=== PATIENT | male | born 2000 | race Hispanic/Latino ===

== ENCOUNTER 2024-07-14 21:21 | Emergency (ER) | payer MEDICAID, SELFPAY ==
--- NOTE | ~2024-07-14 | CT_ITS ---
Non-contrast Head CT History: Headache Technique: Axial non-contrast imaging of the brain was performed. Dose reduction technique was used on this scan by utilizing automated exposure control and iterative reconstruction technique. The dose -length product (DLP) was 605.33 mGy-cm. Findings: There is no evidence of intracranial hemorrhage, mass lesion, or acute infarct. Brain par enchyma appears normal. The ventricles and subarachnoid spaces are normal in size. The calvarium ap pears normal. The visualized paranasal sinuses and mastoid air cells are clear. Impression: No significant abnormality seen. Reviewed, dictated and finalized at location . Impression: No significant abnormality seen.
--- NOTE | ~2024-07-14 | XR_ITS ---
Portable chest x-ray Comparison: None Clinical History: Fever Findings: Lungs are clear, without focal consolidation or pleural effusion. Cardiomediastinal silho uette is unremarkable, aside from median sternotomy. Bones and soft tissues are unremarkable. Impression: Clear lungs. Evidence of prior cardiac surgery. Reviewed, dictated and finalized at location . Impression: Clear lungs. Evidence of prior cardiac surgery.
--- OUTSIDE RECORDS SUMMARY | 2024-07-14 21:23 | XMS_ITS | Clinical Summary ---
Author Organization [facility] [employer] Address [address] [place] [address] Care Team Providers Care Oil And Gas Recruiter Name Role Phone Ivanna Hyde dispatch coordinator Provider Unav ailable Source Comments [facility] [employer],non-owned Affiliates and Associated Physician Practices is amultiple site organization consisting of ambulatory clinics and hospital sitesin [place], [place], [place] and [place]. This disclosure is being madepursuant to the Care Everywhere program and may not contain all information available regarding this patient. Last updated 17.[facility] [employer] Allergies No known active allergies Medications * Be aware that medications may not be up to date on this document. Alwaysverify current medications with the patient. 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 Gender Identity Not on file Sexual Orientation Not on file Last Filed Vital Signs Vital Sign Reading Time Taken Comments Blood Pressure 119/64 09/07/2020 7:15 PM CDT Pulse 97 09/07/2020 7:28 PM CDT Temperature 36.9 C (98.5 F) 09/07/2020 7:00 PM CDT Respiratory Rate 19 09/07/2020 7:28 PM CDT Oxygen Saturation 95% 09/07/2020 7:28 PM CDT Inhaled Oxygen Concentration - - Weight 72.6 kg (160 lb) 09/07/2020 7:00 PM CDT Height 180.3 cm (5' 11) 09/07/2020 7:00 PM CDT Body Mass Index 22.32 09/07/2020 7:00 PM CDT Plan of Treatment Health Maintenance Due Date Last Done Comments HIV SCREENING 2016 HPV VACCINE (1 - Male 3-dose series) 2016 MENINGOCOCCAL (Group B) VACC INE SHARED DECISION-MAKING (1 of 2 - Standard) 2017 HEPATITIS C SCREENING 08/04/2019 DTAP/TDAP/TD VACCINES (1 - Tdap) 2020 HEPATITIS B VACCINE (1 of 3 - 19+ 3-dose series) 2020 COVID-19 VACCINE (1 - 2023-2 5 season) 2023 DEPRESSION SCREENING 02/14/2024 INFLUENZA VACCINE (Season Ended) 2024 ZOSTER VACCINE (1 of 2) 08/09/2051 HIB VACCINE Aged Out No longer eligi ble based on patient's age to complete this topic MENINGOCOCCAL GROUPS A/C/Y/W VACCINE Aged Out No longer eligible b ased on patient's age to complete this topic PNEUMOCOCCAL VACCINE Aged Out No long er eligible based on patient's age to complete this topic Insurance [facility] Care Teams Oil And Gas Recruiter Relationship Specialty Start Date End Date Ivanna Hyde RN PCP - General 02/21/17
--- OUTSIDE RECORDS SUMMARY | 2024-07-14 21:23 | XMS_ITS | CONTINUITY OF CARE DOCUMENT ---
Author Name ehsan moser Address Unknown Organization [facility] Address [address] [place] [address] Phone [phone] Care Team Providers Care Fixed Wing Aircraft Flight Mechanic Name Role Phone Manuel Watts MD Unavailable [phone] Manuel Watts MD Unavailable [phone] INSURANCE PROVIDERS Payer name Policy type / Coverage type [place] red alliance party ID [facility] [id number] HEALTHCARE AND FAMILY SERVICES Medicaid 1 [id number]
[2024-07-14 21:51] VITALS: BP 104/68; PULSE 116; RESP 20; TEMP 37.4; O2SAT 100
[2024-07-15 00:12] VITALS: BP 110/64; PULSE 96; RESP 18; TEMP 37.8; O2SAT 97
--- OUTSIDE RECORDS SUMMARY | 2024-07-15 00:30 | XMS_ITS | CONTINUITY OF CARE DOCUMENT ---
Author Name ehsan moser Address Unknown Organization [facility] Address [address] [place] [address] Phone [phone] Care Team Providers Care Parimutuel Cashier Name Role Phone Manuel Watts MD Unavailable [phone] Manuel Watts MD Unavailable [phone] INSURANCE PROVIDERS Payer name Policy type / Coverage type [place] red constitution party ID [facility]-ADVANTAGE [facility] [id number] HEALTHCARE AND FAMILY SERVICES Medicaid 1 [id number]
--- OUTSIDE RECORDS SUMMARY | 2024-07-15 00:30 | XMS_ITS | Clinical Summary ---
Author Organization [facility] [employer] Address [address] [place] [address] Care Team Providers Care Frame Sample And Pattern Supervisor Name Role Phone Ivanna Hyde auto body shop manager Provider Unav ailable Source Comments [facility] [employer],non-owned Affiliates and Associated Physician Practices is amultiple site organization consisting of ambulatory clinics and hospital sitesin [place], [place], [place] and [place]. This disclosure is being madepursuant to the Care Everywhere program and may not contain all information available regarding this patient. Last updated 17.[facility] [employer] Allergies No known active allergies Medications * Be aware that medications may not be up to date on this document. Alwaysverify current medications with the patient. 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
[2024-07-15] MEDS: diphenhydrAMINE HCl INJ 50 MG/ML VIAL IV PUSH (01:01)
[2024-07-15] MEDS: PROCHLORPERAZINE EDISYLATE 10 MG/2 ML VIAL IV PUSH (01:01)
[2024-07-15] MEDS: SODIUM CHLORIDE 0.9% IV 1,000 ML 999 ML IV CONT (01:01)
[2024-07-15] MEDS: KETOROLAC 15 MG/ML VIAL (*BKC) IV PUSH (01:01)
--- NOTE | 2024-07-15 01:03 | ED.GENADULT ---
HPI - General Adult General Chief complaint: Headache Stated complaint: Migraine x 1 week Time Seen by Provider: 07/15/24 00:15 History of Present Illness HPI narrative: Patient with year old gentleman presents emergency department with chief complaint of headache nausea vomiting. Patient does report that he had a low-grade fever today reports he has prior history of endocarditis and had surgery at [facility] previously this year due to endocarditis. The patient states that he has no chest pain denies shortness of breath reports he has had no cough does report that he has had some nausea vomiting reports that he has photophobia patient denies nuchal rigidity reports that he is able to move his neck without difficulty. Related Data Allergies Allergy/AdvReac Type Severity Reaction Status Date / Time Sulfa (Sulfonamide Allergy Intermediate Swelling Verified 07/15/24 00:13 Antibiotics) Review of Systems Review of Systems: A 10 system review of systems was completed on the patient and is negative except for what is stated in the HPI. Nursing and ancillary documentation was reviewed. Exam Narrative: GENERAL: Well-appearing, well-nourished, and in no acute distress. HEAD: Normocephalic, atraumatic. EYES: PERRLA and EOMI. ENT: Nares clear, no rhinorrhea or epistaxis. Mucous membranes moist. NECK: Supple. No nuchal rigidity CHEST: Clear to auscultation. No respiratory distress. HEART: Regular rate and rhythm. No murmur heard. Normal peripheral pulses. ABDOMEN: Soft, nontender, nondistended, normal active bowel sounds. EXTREMITIES: Normal range of motion. No edema. SKIN: Warm, dry, no rash. NEURO: No focal deficits. Alert and oriented x3. PSYCH: Normal mood and affect. Course Vital Signs Vital signs: Vital Signs Temperature 37.4 C 07/14/24 21:51 Pulse Rate 116 H 07/14/24 21:51 Respiratory Rate 20 07/14/24 21:51 Blood Pressure 104/68 07/14/24 21:51 Pulse Oximetry 100 07/14/24 21:51 Oxygen Delivery Autopap 07/14/24 21:51 Temperature 37.0 C 07/15/24 01:45 Pulse Rate 90 07/15/24 01:45 Respiratory Rate 17 07/15/24 01:45 Blood Pressure 120/68 07/15/24 01:45 Pulse Oximetry 97 07/15/24 01:45 Oxygen Delivery Autopap 07/14/24 21:51 Medical Decision Making [facility] Narrative Medical decision making narrative: Differential diagnosis includes pneumonia, upper respiratory infection, migraine headache, meningitis, endocarditis [place] [id number] The patient has no nuchal rigidity or meningismus The patient had a procalcitonin of 0.3 COVID flu and RSV were negative strep was also negative CT head showed no acute abnormality Chest x-ray showed no focal infiltrate After receiving IV fluids and a migraine-type cocktail the patient is feeling much better at this time has defervesced and still shows no signs of meningeal irritation The patient will be discharged home Vital Signs Vital Signs: Vital Signs Temperature 37.4 C 07/14/24 21:51 Pulse Rate 116 H 07/14/24 21:51 Respiratory Rate 20 07/14/24 21:51 Blood Pressure 104/68 07/14/24 21:51 Pulse Oximetry 100 07/14/24 21:51 Oxygen Delivery Autopap 07/14/24 21:51 Temperature 37.0 C 07/15/24 01:45 Pulse Rate 90 07/15/24 01:45 Respiratory Rate 17 07/15/24 01:45 Blood Pressure 120/68 07/15/24 01:45 Pulse Oximetry 97 07/15/24 01:45 Oxygen Delivery Autopap 07/14/24 21:51 Lab Data 07/15/24 00:56 07/15/24 00:56 Labs: Lab Results 07/15/24 07/15/24 Range/Units 00:55 00:56 WBC 17.1 H (4.5-10.0) K/mm3 RBC 4.44 L (4.6-6.20) M/mm3 Hgb 12.3 L (14.0-18.0) g/dL Hct 37.5 L (42.0-52.0) % MCV 84.5 (80-100) fl MCH 27.7 (26-34) pg MCHC 32.8 (32-36) g/dl RDW 13.9 (11.5-14.5) % Plt Count 196 (150-375) k/mm3 MPV 10.9 H (7.4-10.4) fl Immature Gran % (Auto) 0.5 (0-0.5) % Neut % (Auto) 78.2 H (45.5-73.1) % Lymph % (Auto) 12.5 L (18.3-44.2) % [place] % (Auto) 8.5 (2.6-8.5) % Eos % (Auto) 0.1 (0-4.4) % Baso % (Auto) 0.2 (0.2-1.2) % Lymph # (Auto) 2.14 (0.9-3.2) K/mm3 [place] # (Auto) 1.5 H (0.1-0.6) K/mm3 Eos # (Auto) 0.0 (0-0.3) K/mm3 Baso # (Auto) 0.0 (0.0-0.1) K/mm3 Abs Immat Gran (auto) 0.08 H (0.00-0.031) K/mm3 Absolute Neuts (auto) 13.4 H (1.3-6.7) K/mm3 Absolute Nucleated RBC 0.000 (0.0-0.012) K/mm3 Nucleated RBC % 0.0 (0.0-0.2) % ESR Pending PT 16.0 H (11.1-14.7) Seconds INR 1.3 APTT 33.4 (22.3-36.8) Seconds Sodium 134 L (137-145) mmol/L Potassium 3.3 L (3.4-5.0) mmol/L Chloride 100 (98-107) mmol/L Carbon Dioxide 24 (22-30) mmol/L Anion Gap 10 (4-12) mmol/L BUN 9 (9-20) mg/dL Creatinine 0.78 (0.7-1.3) mg/dL Estim Creat Clear Calc 141 ml/min Estimated GFR > 60 (59 - ) Glucose 128 H (65-110) mg/dL Lactic Acid 2.0 (0.7-2.0) mmol/L Calcium 8.9 (8.4-10.2) mg/dL Magnesium 2.0 (1.6-2.3) mg/dL Total Bilirubin 0.9 (0.2-1.3) mg/dL AST 21 (17-59) U/L ALT 24 (6-50) U/L Alkaline Phosphatase 80 (38-126) U/L C-Reactive Protein Pending Total Protein 7.0 (6.3-8.2) g/dL Albumin 3.9 (3.5-5.1) g/dL Procalcitonin 0.3 ng/mL Influenza A (RT-PCR) Negative (Negative) Influenza B (RT-PCR) Negative (Negative) RSV (RT-PCR) Negative (Negative) SARS-CoV-2 RNA (RT-PCR) Negative (Negative) Group A Strep (PCR) Not detected (Negative) Discharge Plan Discharge Clinical Impression: Headache, Acute viral syndrome Patient Disposition: Home Condition: Stable Instructions: Antibiotic Form, Acute Headache (ED), Viral Syndrome (ED) Additional Instructions: If he develops severe headache culture was stiffness in your neck were you cannot bend your neck high fevers or worsening symptoms please return to the emergency department for re-evaluation Patient Language: Trinidadian Follow-up/Referrals: Allen,MD Daryl [Primary Care Provider] - Time of Disposition: 02:04
[2024-07-15] MEDS: ACETAMINOPHEN 500 MG TABLET 1000 MG PO (01:06)
[2024-07-15 01:20] LABS: Alanine Aminotransferase 24 U/L (6-50); Albumin Level 3.9 g/dL (3.5-5.1); Alkaline Phosphatase 80 U/L (38-126); Anion Gap 10 mmol/L (4-12); Aspartate Amino Transferase 21 U/L (17-59); Bilirubin,Total 0.9 mg/dL (0.2-1.3); Blood Urea Nitrogen 9 mg/dL (9-20); Calcium 8.9 mg/dL (8.4-10.2); Carbon Dioxide 24 mmol/L (22-30); Chloride 100 mmol/L (98-107); Estimated CRCL calculation 141 ml/min; Estimated Glomerular Filt Rate > 60; Glucose 128 mg/dL (65-110); Potassium 3.3 mmol/L (3.4-5.0); Sodium 134 mmol/L (137-145)
[2024-07-15 01:30] LABS: Basophils Percent Auto 0.2 % (0.2-1.2); Eosinophils Percent Auto 0.1 % (0-4.4); Hematocrit 37.5 % (42.0-52.0); Hemoglobin 12.3 g/dL (14.0-18.0); Immature Granulocyte Absolute 0.08 K/mm3 (0.00-0.031); Immature Granulocyte Percent A 0.5 % (0-0.5); Lymphocytes Absolute Auto 2.14 K/mm3 (0.9-3.2); Lymphocytes Percent Auto 12.5 % (18.3-44.2); Mean Corpuscular HGB Conc 32.8 g/dl (32-36); Mean Corpuscular Hemoglobin 27.7 pg (26-34); Mean Corpuscular Volume 84.5 fl (80-100); Mean Platelet Volume 10.9 fl (7.4-10.4); Monocytes Absolute Auto 1.5 K/mm3 (0.1-0.6); Monocytes Percent Auto 8.5 % (2.6-8.5); Neutrophils Absolute Auto 13.4 K/mm3 (1.3-6.7); Neutrophils Percent Auto 78.2 % (45.5-73.1); Platelet Count Result 196 k/mm3 (150-375); Red Blood Count 4.44 M/mm3 (4.6-6.20); Red Cell Distribution Width 13.9 % (11.5-14.5); White Blood Count 17.1 K/mm3 (4.5-10.0)
[2024-07-15 01:33] LABS: Strep Group A RT-PCR NOT DETECTED (Negative)
[2024-07-15 01:35] VITALS: TEMP 37
[2024-07-15 01:42] LABS: INR 1.3; Partial Thromboplastin Time 33.4 Seconds (22.3-36.8)
[2024-07-15 01:45] VITALS: BP 120/68; PULSE 90; RESP 17; TEMP 37; O2SAT 97
[2024-07-15 01:45] LABS: Influenza A QL RT-PCR Negative (Negative); Influenza B QL RT-PCR Negative (Negative); RSV RNA, RT-PCR Negative (Negative); SARS-CoV-2 RNA PCR Negative (Negative)
[2024-07-15 01:49] LABS: Procalcitonin 0.3 ng/mL
[2024-07-15 02:07] LABS: CRP 6.8 mg/dL (<1.0)
[2024-07-15 02:34] LABS: Erythrocyte Sedimentation Rate 19 mm/hr (0-20)
--- NOTE | 2024-07-16 00:46 | PC.NURSE ---
Received call from lab regarding critical blood culture result, and that lab was unable to get ahold of the hospitalist x3 attempts. Resulted as Gm + cocci in chains on blood culture that was drawn when the patient was in the ED 07/15/24 early am and evaluated for a headache. Note the patient has a hx of mitral valve replacement. Call to ED, result given to Nicol Amato, recharger, who passed the result on to ERP Dr. Hinton. Dr. Hinton states will contact the patient with the results and further instructions.
== END 2024-07-15 02:15 | disposition home or self-care (01) ==
PROVIDERS: Emergency Provider Emergency Medicine; PCP Pediatrics
DX: R51.9 Headache, unspecified (principal); B34.9 Viral infection, unspecified; Z20.822 Contact with and (suspected) exposure to COVID-19
CPT/HCPCS: 36415; 70450; 71045; 80053; 83605; 83735; 84145; 85025; 85610; 85652; 85730; 86140; 87040; 87181; 87637; 87651; 96361; 96374; 96375; 99284; A9270; J0780; J1200; J1885; J7030

== ENCOUNTER 2024-07-16 17:18 | Emergency (ER) | payer MEDICAID, SELFPAY ==
--- NOTE | ~2024-07-16 | XR_ITS ---
XR chest 1V portable Ordering provider: Christin Quinones PA-C History: 23 years Male with . sepsis w/u . Comparison: July 15, 2024 FINDINGS: MEDIASTINUM: The cardiac silhouette is not enlarged. Postoperative changes in the mediastinum. LUNGS: No infiltrates, effusions or pneumothorax. OTHER: No free air under the diaphragm. IMPRESSION: No acute cardiopulmonary pathology. Reviewed, dictated and finalized at location A.
--- OUTSIDE RECORDS SUMMARY | 2024-07-16 17:20 | XMS_ITS | CONTINUITY OF CARE DOCUMENT ---
Author Name ehsan moser Address Unknown Organization [facility] Address [address] [place] [address] Phone [phone] Care Team Providers Care Nursery Rn Name Role Phone Manuel Watts MD Unavailable [phone] Manuel Watts MD Unavailable [phone] INSURANCE PROVIDERS Payer name Policy type / Coverage type [place] red green party ID [facility]-ADVANTAGE [facility] [id number] HEALTHCARE AND FAMILY SERVICES Medicaid 1 [id number]
--- OUTSIDE RECORDS SUMMARY | 2024-07-16 17:20 | XMS_ITS | Clinical Summary ---
Author Organization [facility] [employer] Address [address] [place] [address] Care Team Providers Care City Carrier Name Role Phone Ivanna Hyde safety assistant Provider Unav ailable Source Comments [facility] [employer],non-owned Affiliates and Associated Physician Practices is amultiple site organization consisting of ambulatory clinics and hospital sitesin [place], [place], [place] and [place]. This disclosure is being madepursuant to the Care Everywhere program and may not contain all information available regarding this patient. Last updated 17.[facility] [employer] Allergies No known active allergies Medications * Be aware that medications may not be up to date on this document. Alwaysverify current medications with the patient. 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
[2024-07-16 17:36] VITALS: BP 132/79; PULSE 108; RESP 16; TEMP 36.3; O2SAT 100
--- NOTE | 2024-07-16 18:13 | ECG_ITS ---
Test Date: 2024-07-16 18:44:39 Measurements Intervals [place] Rate: 80 P: 55 WV: 115 QRS: 42 QRSD: 95 T: 48 QT: 371 QTc: 429 Interpretive Statements SINUS RHYTHM WITH SHORT [place] INTERVAL NONSPECIFIC T-WAVE ABNORMALITY- ANTERIOR LEADS BASELINE ARTIFACT- I, II, AVR, AVL, V1 BORDERLINE ECG No previous ECG available for comparison Electronically Signed On 07-16-2024 18:49:42 CDT by Ed Burgos D.O.
[2024-07-16 18:47] LABS: Basophils Absolute Auto 0.1 K/mm3 (0.0-0.1); Basophils Percent Auto 0.3 % (0.2-1.2); Hematocrit 35.3 % (42.0-52.0); Hemoglobin 11.6 g/dL (14.0-18.0); Immature Granulocyte Absolute 0.22 K/mm3 (0.00-0.031); Immature Granulocyte Percent A 1.1 % (0-0.5); Lymphocytes Absolute Auto 1.49 K/mm3 (0.9-3.2); Lymphocytes Percent Auto 7.5 % (18.3-44.2); Mean Corpuscular HGB Conc 32.9 g/dl (32-36); Mean Corpuscular Hemoglobin 28.1 pg (26-34); Mean Corpuscular Volume 85.5 fl (80-100); Monocytes Absolute Auto 1.3 K/mm3 (0.1-0.6); Monocytes Percent Auto 6.8 % (2.6-8.5); Neutrophils Absolute Auto 16.8 K/mm3 (1.3-6.7); Neutrophils Percent Auto 84.3 % (45.5-73.1); Platelet Count Result 215 k/mm3 (150-375); Red Blood Count 4.13 M/mm3 (4.6-6.20); White Blood Count 19.9 K/mm3 (4.5-10.0)
--- OUTSIDE RECORDS SUMMARY | 2024-07-16 18:47 | XMS_ITS | CONTINUITY OF CARE DOCUMENT ---
Author Name ehsan moser Address Unknown Organization [facility] Address [address] [place] [address] Phone [phone] Care Team Providers Care Ferryboat Deckhand Name Role Phone Manuel Watts MD Unavailable [phone] Manuel Watts MD Unavailable [phone] INSURANCE PROVIDERS Payer name Policy type / Coverage type [place] red constitution party ID [facility]-ADVANTAGE [facility] [id number] HEALTHCARE AND FAMILY SERVICES Medicaid 1 [id number]
--- OUTSIDE RECORDS SUMMARY | 2024-07-16 18:47 | XMS_ITS | Clinical Summary ---
Author Organization [facility] Address [address] [place] [address] Care Team Providers Care Binding Bench Worker Name Role Phone Ivanna Hyde tobacco prizer Provider Unav ailable Source Comments [facility],non-owned Affiliates and Associated Physician Practices is amultiple site organization consisting of ambulatory clinics and hospital sitesin [place], [place], [place] and [place]. This disclosure is being madepursuant to the Care Everywhere program and may not contain all information available regarding this patient. Last updated 17.[facility] Allergies No known active allergies Medications * Be aware that medications may not be up to date on this document. Alwaysverify current medications with the patient. 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
--- NOTE | 2024-07-16 18:49 | ED_ITS ---
HPI - Recheck/Abnormal Lab/Rx General Chief Complaint: Recheck/Abnormal Lab/Rx <ERINN Gomez Last Filed: 07/17/24 03:32> Stated Complaint: + blood cultures <ERINN Gomez Last Filed: 07/17/24 03:32> Time Seen by Provider: 07/16/24 18:14 <ERINN Gomez Last Filed: 07/17/24 03:32> Source: patient and old records reviewed <ERINN Gomez Last Filed: 07/17/24 03:32> Mode of arrival: ambulatory <ERINN Gomez Filed: 07/17/24 03:32> Limitations: no limitations <ERINN Gomez Last Filed: 07/17/24 03:32> History of Present Illness HPI narrative: Patient is a 23-year-old male who presents the ED with report of positive blood cultures. 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 He underwent subsequent mitral valve replacement at [facility]. He is unsure of his surgeon's name. He was seen in the ED here late Monday night into Monday morning for a headache and nausea/vomiting. He reported low very fevers at time. He did not exhibit any evidence of meningitis and improved with a migraine cocktail. Had blood work drawn at that time showing leukocytosis of 17,000. Blood cultures were obtained prior to patient being ultimately discharged home. Received notification from labs yesterday that all 3 of patient's blood cultures resulted positive for gram positive cocci in chains. Patient was referred back to the ED for further evaluation. Patient does admit to ongoing intermittent fevers. He denies current headache. Denies focal numbness or weakness, nausea, vomiting, cough, congestion, chest pain, shortness of breath. Patient denies further IV drug use. He does admit to injecting just after leaving the hospital in February, but states he has not used since then. Patient was supposed to follow-up with his surgeon in April, but missed his appointment. <ERINN Gomez Last Filed: 07/17/24 03:32> Related Data Allergies/Adverse Reactions: Allergies Allergy/AdvReac Type Severity Reaction Status Date / Time Sulfa (Sulfonamide Allergy Intermediate Swelling Verified 07/15/24 00:13 Antibiotics) <Christin Quinones PA-C - Last Filed: 07/17/24 03:32> Review of Systems 2 Review of Systems: All systems reviewed & are unremarkable except as noted in HPI. <Christin Quinones PA-C - Last Filed: 07/17/24 03:32> All systems reviewed & are unremarkable except as noted in HPI and below < Christin Quinones PA-C - Last Filed: 07/17/24 03:32> Exam 2 Narrative: GENERAL: Mildly ill appearing, well-nourished, non-toxic, in no acute distress. HEAD: Normocephalic, atraumatic. NECK: No meningeal signs. RESPIRATORY: Airway patent, respirations nonlabored. Clear to auscultation bilaterally, no rales, rhonchi, wheezing. CARDIOVASCULAR: Borderline tachycardic with regular rhythm. No appreciable murmurs. Normal peripheral pulses. ABDOMINAL: Soft, nontender, nondistended. Normoactive BS. MUSCULOSKELETAL: Moves all extremities. No gross deformities. No peripheral edema. SKIN: Warm, dry, normal color. NEURO: A&O X3. Speech clear. Cranial nerves II-XII grossly intact. Steady gait. No ataxic movements. PSYCHIATRIC: Appropriate mood and affect. Normal interaction. <Christin Quinones PA-C - Last Filed: 07/17/24 03:32> Course RESERVATION MANAGER/PA Physician Supervision PA did inform me this patient had presented to the ED. Multiple phone calls had been made in the preceding 24 hours regarding positive blood cultures. I was notified patient had a bed at [facility] but was wanting to be transported by his mother. Patient does not appear to have any logistical plans aligned/arranged. I do know the PA spent an extensive time discussing risks and benefit with patient who became frustrated and , given he had the capacity to do so, left against medical advice. <Farhana Hinton MD - Last Filed: 07/22/24 05:11> Vital Signs Vital signs: Vital Signs Temperature 97.3 F L 07/16/24 17:36 Pulse Rate 108 H 07/16/24 17:36 Respiratory Rate 16 07/16/24 17:36 Blood Pressure 132/79 07/16/24 17:36 Pulse Oximetry 100 07/16/24 17:36 Oxygen Delivery Room Air 07/16/24 17:36 Temperature 97.3 F L 07/16/24 17:36 Pulse Rate 80 07/16/24 19:45 Respiratory Rate 16 07/16/24 19:45 Blood Pressure 120/77 07/16/24 19:45 Pulse Oximetry 98 07/16/24 19:45 Oxygen Delivery Room Air 07/16/24 17:36 <Christin Quinones PA-C - Last Filed: 07/17/24 03:32> Vital Signs Temperature 97.3 F L 07/16/24 17:36 Pulse Rate 108 H 07/16/24 17:36 Respiratory Rate 16 07/16/24 17:36 Blood Pressure 132/79 07/16/24 17:36 Pulse Oximetry 100 07/16/24 17:36 Oxygen Delivery Room Air 07/16/24 17:36 Temperature 97.3 F L 07/16/24 17:36 Pulse Rate 80 07/16/24 19:45 Respiratory Rate 16 07/16/24 19:45 Blood Pressure 120/77 07/16/24 19:45 Pulse Oximetry 98 07/16/24 19:45 Oxygen Delivery Room Air 07/16/24 17:36 <Farhana Hinton MD - Last Filed: 07/22/24 05:11> MDM - Recheck/Abnormal Lab/Rx MDM Narrative Medical decision making narrative: Patient presented to ED with report of office blood cultures. Was seen in the ED here on 07/15 for migraine, nausea, vomiting. Improved with migraine cocktail however white count was noted to be elevated blood cultures were obtained. These blood cultures did result positive for gram-positive cocci in chains. Blood cultures repeated today. White blood cell count increasing from 17k to 19.9 today. 84% neutrophils. No bandemia. CMP is fairly unremarkable, stable electrolytes. Stable kidney function. Blood glucose 124. AST 51. ALT 94. Alk-phos 199. Lactic acid 2.0. Procalcitonin 0.3. CRP 8.5. Troponin undetectable. EKG without concerning ST changes. Chest x-ray is clear. UA with trace ketones, no signs of infection. Urine drug screen is positive for amphetamines and cannabinoids. Discussed case with Dr. Vandana Canas, hospitalist at [facility], accepted patient for transfer/admission. Will consult Dr. West, cardiothoracic surgery, who performed previous surgery. Patient received bed at [facility]. Will arrange transportation. He remains stable at this time. Upon discussing transfer via ambulance with patient, patient reports he does not feel comfortable going over to [facility] in an ambulance. Requesting to go by private vehicle. States he will have his mother come pick him up and take him to [facility]. I discussed with patient that this is not a monzon decision, that he truly needs ongoing antibiotics and telemetry monitoring, and to be a direct admission at an outside hospital, it is common protocol and recommended that he goes by ambulance. The patient is adamant that he will not go by ambulance. Requesting to sign out against medical advice. Reports that he would like to smoke before going to [facility] and he is not in a good mental space to go through all this again. I offered nicotine patch and anti anxiety medication to keep patient calm for transport, however he declined. Again, very adamant that he will not go by ambulance. I advised that it is not recommended to transport via POV and I am not comfortable simply allowing his mother to take him via POV given that previous EDP attempted to contact her numerous times yesterday and were unsuccessful. I requested to speak to patient's mother to discuss this situation and the critical nature of patient's condition with her. The patient himself attempted to contact her numerous times, but was unable to reach her. Do not feel she is a reliable source to be working in patient's best interest at this time. Again advised patient would need to sign out against medical advise if he chose to leave, which I strongly advised against, and informed patient AMA status would thus forfeit his assigned bed at [facility]. I had an extensive conversation with patient at bedside, at least greater than 20 minutes, about the risks of leaving against medical advice and the seriousness of his current condition/bacteremia/possible recurrent endocarditis/need for immediate care and treatment. I emphasized the extreme risks of the possibility of if patient chooses to leave [place] and forego further treatment. Patient voiced understanding of risks and is adamant about leaving AMA. Refusing to talk on the subject any further. Patient signed AMA paperwork, left facility with steady gait. Advised he can return at any time to resume evaluation. < Christin Quinones PA-C - Last Filed: 07/17/24 03:32> Medical Records Attestation: I reviewed the patient's medical records. <Christin Quinones PA-C - Last Filed: 07/17/24 03:32> Lab Data Attestation: I reviewed the patient's lab results. <Christin Quinones PA-C - Last Filed: 07/17/24 03:32> Result diagrams: 07/16/24 18:36 07/16/24 19:25 <Christin Quinones PA-C - Last Filed: 07/17/24 03:32> Labs: Lab Results 07/16/24 07/16/24 07/16/24 Range/Units 18:36 19:25 19:43 WBC 19.9 H (4.5-10.0) K/mm3 RBC 4.13 L (4.6-6.20) M/mm3 Hgb 11.6 L (14.0-18.0) g/dL Hct 35.3 L (42.0-52.0) % MCV 85.5 (80-100) fl MCH 28.1 (26-34) pg MCHC 32.9 (32-36) g/dl RDW 14.0 (11.5-14.5) % Plt Count 215 (150-375) k/mm3 MPV 11.0 H (7.4-10.4) fl Immature Gran % (Auto) 1.1 H (0-0.5) % Neut % (Auto) 84.3 H (45.5-73.1) % Lymph % (Auto) 7.5 L (18.3-44.2) % [place] % (Auto) 6.8 (2.6-8.5) % Eos % (Auto) 0.0 (0-4.4) % Baso % (Auto) 0.3 (0.2-1.2) % Lymph # (Auto) 1.49 (0.9-3.2) K/mm3 [place] # (Auto) 1.3 H (0.1-0.6) K/mm3 Eos # (Auto) 0.0 (0-0.3) K/mm3 Baso # (Auto) 0.1 (0.0-0.1) K/mm3 Abs Immat Gran (auto) 0.22 H (0.00-0.031) K/mm3 Absolute Neuts (auto) 16.8 H (1.3-6.7) K/mm3 Absolute Nucleated RBC 0.000 (0.0-0.012) K/mm3 Nucleated RBC % 0.0 (0.0-0.2) % PT 17.2 H (11.1-14.7) Seconds INR 1.4 APTT 31.5 (22.3-36.8) Seconds Sodium 139 (137-145) mmol/L Potassium 4.3 (3.4-5.0) mmol/L Chloride 105 (98-107) mmol/L Carbon Dioxide 24 (22-30) mmol/L Anion Gap 10 (4-12) mmol/L BUN 18 (9-20) mg/dL Creatinine 0.83 (0.7-1.3) mg/dL Estim Creat Clear Calc Not Reportable Estimated GFR > 60 (59 - ) Glucose 124 H (65-110) mg/dL Lactic Acid 2.0 (0.7-2.0) mmol/L Calcium 9.2 (8.4-10.2) mg/dL Total Bilirubin 0.7 (0.2-1.3) mg/dL AST 51 (17-59) U/L ALT 94 H (6-50) U/L Alkaline Phosphatase 199 H (38-126) U/L Troponin I < 0.012 (0.000-0.034) ng/mL C-Reactive Protein 8.5 H (<1.0) mg/dL Total Protein 7.7 (6.3-8.2) g/dL Albumin 4.1 (3.5-5.1) g/dL Procalcitonin 0.3 ng/mL Urine Color Yellow (Yellow) Urine Appearance Clear (Clear) Urine pH 6.0 (5.0-9.0) Ur Specific [place] 1.028 (1.001-1.035) Urine Protein 1+ H (Negative) mg/dL Urine Glucose (UA) Negative (Negative) mg/dL Urine Ketones Trace H (Negative) mg/dL Ur Blood (Man) Negative (Negative) Urine Nitrate Negative (Negative) Urine Bilirubin Negative (Negative) Urine Urobilinogen 1.0 (<2.0) mg/dL Leukocyte Esterase Rfl Negative (Negative) MICAH/UL Urine RBC 0-2 (0-2) /hpf Urine WBC 0-5 (0-3) /hpf Ur Squamous Epith Cells None seen (Few) /hpf Urine Bacteria None seen /hpf Urine Casts 0-2 Urine Opiates Screen Negative (Negative) Urine Methadone Screen Negative (Negative) Ur Barbiturates Screen Negative (Negative) Ur Phencyclidine Scrn Negative (Negative) Ur Amphetamine Screen Positive A (Negative) U Benzodiazepines Scrn Negative (Negative) Urine Cocaine Screen Negative (Negative) U Cannabinoids Screen Positive A (Negative) <Christin Quinones PA-C - Last Filed: 07/17/24 03:32> Lab Results 07/16/24 07/16/24 07/16/24 Range/Units 18:36 19:25 19:43 WBC 19.9 H (4.5-10.0) K/mm3 RBC 4.13 L (4.6-6.20) M/mm3 Hgb 11.6 L (14.0-18.0) g/dL Hct 35.3 L (42.0-52.0) % MCV 85.5 (80-100) fl MCH 28.1 (26-34) pg MCHC 32.9 (32-36) g/dl RDW 14.0 (11.5-14.5) % Plt Count 215 (150-375) k/mm3 MPV 11.0 H (7.4-10.4) fl Immature Gran % (Auto) 1.1 H (0-0.5) % Neut % (Auto) 84.3 H (45.5-73.1) % Lymph % (Auto) 7.5 L (18.3-44.2) % [place] % (Auto) 6.8 (2.6-8.5) % Eos % (Auto) 0.0 (0-4.4) % Baso % (Auto) 0.3 (0.2-1.2) % Lymph # (Auto) 1.49 (0.9-3.2) K/mm3 [place] # (Auto) 1.3 H (0.1-0.6) K/mm3 Eos # (Auto) 0.0 (0-0.3) K/mm3 Baso # (Auto) 0.1 (0.0-0.1) K/mm3 Abs Immat Gran (auto) 0.22 H (0.00-0.031) K/mm3 Absolute Neuts (auto) 16.8 H (1.3-6.7) K/mm3 Absolute Nucleated RBC 0.000 (0.0-0.012) K/mm3 Nucleated RBC % 0.0 (0.0-0.2) % PT 17.2 H (11.1-14.7) Seconds INR 1.4 APTT 31.5 (22.3-36.8) Seconds Sodium 139 (137-145) mmol/L Potassium 4.3 (3.4-5.0) mmol/L Chloride 105 (98-107) mmol/L Carbon Dioxide 24 (22-30) mmol/L Anion Gap 10 (4-12) mmol/L BUN 18 (9-20) mg/dL Creatinine 0.83 (0.7-1.3) mg/dL Estim Creat Clear Calc Not Reportable Estimated GFR > 60 (59 - ) Glucose 124 H (65-110) mg/dL Lactic Acid 2.0 (0.7-2.0) mmol/L Calcium 9.2 (8.4-10.2) mg/dL Total Bilirubin 0.7 (0.2-1.3) mg/dL AST 51 (17-59) U/L ALT 94 H (6-50) U/L Alkaline Phosphatase 199 H (38-126) U/L Troponin I < 0.012 (0.000-0.034) ng/mL C-Reactive Protein 8.5 H (<1.0) mg/dL Total Protein 7.7 (6.3-8.2) g/dL Albumin 4.1 (3.5-5.1) g/dL Procalcitonin 0.3 ng/mL Urine Color Yellow (Yellow) Urine Appearance Clear (Clear) Urine pH 6.0 (5.0-9.0) Ur Specific [place] 1.028 (1.001-1.035) Urine Protein 1+ H (Negative) mg/dL Urine Glucose (UA) Negative (Negative) mg/dL Urine Ketones Trace H (Negative) mg/dL Ur Blood (Man) Negative (Negative) Urine Nitrate Negative (Negative) Urine Bilirubin Negative (Negative) Urine Urobilinogen 1.0 (<2.0) mg/dL Leukocyte Esterase Rfl Negative (Negative) MICAH/UL Urine RBC 0-2 (0-2) /hpf Urine WBC 0-5 (0-3) /hpf Ur Squamous Epith Cells None seen (Few) /hpf Urine Bacteria None seen /hpf Urine Casts 0-2 Urine Opiates Screen Negative (Negative) Urine Methadone Screen Negative (Negative) Ur Barbiturates Screen Negative (Negative) Ur Phencyclidine Scrn Negative (Negative) Ur Amphetamine Screen Positive A (Negative) U Benzodiazepines Scrn Negative (Negative) Urine Cocaine Screen Negative (Negative) U Cannabinoids Screen Positive A (Negative) <Farhana Hinton MD - Last Filed: 07/22/24 05:11> Imaging Data Attestation: I personally reviewed and interpreted this imaging study as follows: < Christin Quinones PA-C - Last Filed: 07/17/24 03:32> Radiologist's impression: ITS Impressions Chest X-Ray 07/16/24 19:14 IMPRESSION: No acute cardiopulmonary pathology. <Christin Quinones PA-C - Last Filed: 07/17/24 03:32> ECG Data EKG #1: Attestation: I personally reviewed and interpreted this ECG as follows: <Christin Quinones PA-C - Last Filed: 07/17/24 03:32> ECG completion date: 07/16/24 <ERINN Gomez Last Filed: 07/17/24 03:32> ECG completion time: 18:44 <ERINN Gomez Last Filed: 07/17/24 03:32> EKG Interpretation: normal rate (80), sinus rhythm, non-specific ST changes, normal QT and other (short TX) <ERINN Gomez Last Filed: 07/17/24 03:32> Critical Care Time Critical Care Time Critical Care Time: Yes <ERINN Gomez Last Filed: 07/17/24 03:32> Total Critical Care Time: 50 <ERINN Gomez Last Filed: 07/17/24 03:32> Discharge Plan Discharge Clinical Impression: Bacteremia, History of bacterial endocarditis, History of mitral valve replacement, Amphetamine use <ERINN Gomez Last Filed: 07/17/24 03:32> Patient Disposition: Left Against Medical Advice <ERINN Gomez Last Filed: 07/17/24 03:32> Condition: Guarded Prognosis <ERINN Gomez Last Filed: 07/17/24 03:32> Patient Language: Panamanian <ERINN Gomez Last Filed: 07/17/24 03:32> Follow-up/Referrals: Allen,MD Daryl [Primary Care Provider] - <ERINN Gomez Last Filed: 07/17/24 03:32>
[2024-07-16 18:58] LABS: INR 1.4; Partial Thromboplastin Time 31.5 Seconds (22.3-36.8); Prothrombin Time 17.2 Seconds (11.1-14.7)
[2024-07-16 19:10] LABS: Troponin I < 0.012 ng/mL (0.000-0.034)
[2024-07-16 19:15] LABS: Procalcitonin 0.3 ng/mL
[2024-07-16 19:45] VITALS: BP 120/77; PULSE 80; RESP 16; O2SAT 98
[2024-07-16] MEDS: SODIUM CHLORIDE 0.9% IV 1,000 ML 999 ML IV CONT (19:47)
[2024-07-16] MEDS: PIPERACILLN/TAZ 3.375GM/NS50ML 3.375 GM/50 ML BAG IVPB (19:47)
[2024-07-16 19:49] LABS: Alanine Aminotransferase 94 U/L (6-50); Albumin Level 4.1 g/dL (3.5-5.1); Alkaline Phosphatase 199 U/L (38-126); Anion Gap 10 mmol/L (4-12); Aspartate Amino Transferase 51 U/L (17-59); Bilirubin,Total 0.7 mg/dL (0.2-1.3); Blood Urea Nitrogen 18 mg/dL (9-20); CRP 8.5 mg/dL (<1.0); Calcium 9.2 mg/dL (8.4-10.2); Carbon Dioxide 24 mmol/L (22-30); Chloride 105 mmol/L (98-107); Estimated Glomerular Filt Rate > 60; Glucose 124 mg/dL (65-110); Potassium 4.3 mmol/L (3.4-5.0); Sodium 139 mmol/L (137-145); Total Protein 7.7 g/dL (6.3-8.2)
--- NOTE | 2024-07-16 20:23 | PC.NURSE ---
This RN spoke with [facility] transfer center. All questions answered
[2024-07-16 20:57] LABS: Add Urine Microscopic? YES; Appearance Urine Clear (Clear); Bacteria Urine None Seen /hpf; Bilirubin Urine Negative (Negative); Blood Urine Negative (Negative); Color Urine Yellow (Yellow); Glucose Urine UA Negative (Negative); Ketones Urine Trace mg/dL (Negative); Leukocyte Esterase Ur Negative LEU/UL (Negative); Nitrate Urine Negative (Negative); Non Pathogenic Casts 0-2; Protein Urine 1+ mg/dL (Negative); RBC Urine 0-2 /hpf (0-2); Specific Grav Ur 1.028 (1.001-1.035); Squamous Epithelial Cell Urine None Seen /hpf (Few); WBC Urine 0-5 /hpf (0-3)
[2024-07-16 21:00] LABS: Amphetamine Screen Urine Positive (Negative); Barbiturate Screen Urine Negative (Negative); Benzodiazepines Screen Urine Negative (Negative); Cannabinoid Screen Urine Positive (Negative); Cocaine Screen Urine Negative (Negative); Methadone Screen Urine Negative (Negative); Opiate Screen Urine Negative (Negative); Phencyclidine Screen Urine Negative (Negative)
--- NOTE | 2024-07-16 21:11 | PC.NURSE ---
[facility] called to notify this RN that the pt. has a bed at [facility]. Phone number to call report [phone]. This RN went in to pt. room to give him the update. He states I'm just gonna have my mom take me. This RN educated pt. that his provider stated he needed to go by [facility] for cardiac monitoring. Pt. states what if I refuse? Pt. provider notified of conversation.
--- NOTE | 2024-07-16 21:25 | PC.NURSE ---
Pt. provider, JUNIE Quinones at bedside speaking with pt. Pt. states he would like to sign out AMA. Pt. is A&Ox4 and educated of risks of leaving, including . Pt. verbalized understanding. Pt. verbalized that he is aware he will lose his bed at [facility] if he signs out. Pt. verbalized understanding and states he is going to have his Mom take him to the ER at [facility]. Ambulance cancelled and [facility] notified that pt. signed out AMA. Dr. Zapata also at bedside educating pt. of risks of leaving. Pt. continues to insist on leaving.
== END 2024-07-16 21:57 | disposition left against medical advice (07) ==
PROVIDERS: Emergency Provider Physician Assistant; PCP Pediatrics
DX: R78.81 Bacteremia (principal); Z86.79 Personal history of other diseases of the circulatory system; Z95.2 Presence of prosthetic heart valve; F15.90 Other stimulant use, unspecified, uncomplicated
CPT/HCPCS: 36415; 71045; 80053; 80307; 81001; 83605; 84145; 84484; 85025; 85610; 85730; 86140; 87040; 93005; 96365; 96366; 96368; 99284; J2543; J7030